=== PATIENT | female | born 1985 | race Caucasian/White ===

== ENCOUNTER 2021-07-31 13:55 | Outpatient (CLI) | payer OTHER, SELFPAY ==
--- NOTE | ~2021-07-31 | MR_ITS ---
EXAMINATION: MR knee RT wo con DATE: 07/31/2021 15:44 INDICATION: Right knee pain and effusion TECHNIQUE: Magnetic resonance imaging (MRI) of the right knee was performed without intravenous contr ast. Sequences included coronal PD-weighted FSE, coronal PD-weighted FS FSE, sagittal T2-weighted FS E, sagittal PD-weighted FS FSE and axial PD weighted fat saturated FSE. COMPARISON: None. FINDINGS: Medial compartment: Medial meniscus is normal. [place] deep chondral defect along the anterior weightbearing medial femora l condyle measuring 13 mm AP and 4 mm medial to lateral and without degenerative subchondral changes. There appears be a minimal amount of delamination at or near the bone chondral interface extending 1 -2 mm posteriorly from the posterior margin of the defect. Remaining cartilage in the medial compartm ent is normal. Lateral compartment: Lateral meniscus is normal. Similar deep chondral defect measuring 8 mm AP and 6 mm medial to lateral at the anterior weightbearing lateral femoral condyle without degenerative subchondral changes. Mild chondral surface regularity and shallow fissuring along the central aspect of the lateral tibial ethan teau extending onto the shoulder the intercondylar eminence. Patellofemoral compartment: Partial-thickness cartilage loss at the lateral patellar facet. There is tiny focus of subarticular e humza at the lateral facet underlying a horizontal chondral fissure extending across the mid to cephal ad aspect of the lateral facet to the apical ridge. Partial-thickness chondral ulceration along the l ateral margin of the lateral trochlea with tiny focus of underlying subarticular edema. Ligaments and tendons: Anterior and posterior cruciate ligaments are normal. The medial collateral ligament and fibular linda ateral ligament complex are normal. The extensor mechanism is normal. The visualized medial and later al hamstring tendons as well as the iliotibial band are normal. Fluid: Physiologic amount of fluid in the joint space. No loose osteochondral bodies identified. Osseous/other: There is red marrow reexpansion in the distal metadiaphyseal region of the femur. Couple small low si gnal intensity bone islands at the lateral femoral condyle. No fracture or pathologic marrow replacin g process. IMPRESSION: 1. 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 Reviewed, dictated and finalized at location A. IMPRESSION: 1. Mild tricompartmental osteoarthritis with deep chondral defects along the an terior weightbearing medial and lateral femoral condyles and with small regions of moderate to high-grade chondromalacia the lateral patellar facet and trochl ea.
--- NOTE | ~2021-07-31 | MR_ITS ---
EXAMINATION: MR foot LT wo con DATE: 07/31/2021 15:43 INDICATION: Left foot pain with avulsion fracture at the dorsum of the foot. TECHNIQUE: Magnetic resonance imaging (MRI) of the left foot excluding the toes was performed without intravenous contrast. Sequences included sagittal T1-weighted FSE, sagittal fluid sensitive FSE STIR , coronal PD-weighted FS FSE, coronal T1-weighted FSE, axial PD-weighted FS FSE, and axial PD-weighte d FSE. COMPARISON: None FINDINGS: Bone alignment is normal. No acute fracture. There is moderate osteoarthritis at the talonavicular kenton int with subarticular cystic changes and some cortical irregularity along the dorsolateral aspect of the proximal articular surface of the navicula. There is a small ossicle at the dorsal aspect of the joint space with low signal intensity corticated margins and without marrow edema to suggest acute fr acture which could represent either a developmental accessory os supra naviculare, heterotopic ossifi cation related to chronic tear of the dorsal talonavicular ligament or chronic nonunited avulsion fra cture fragment. There is additional moderate osteoarthritis at the anterior facet of the subtalar sherrill nt with marginal osteophytes and subarticular edema along the talar side of the articulation. Mild os teoarthritis at the calcaneocuboid and tarsal metatarsal joints. The Lisfranc ligament complex is nor mal. Thickening and increased signal along the tibial spring component of the anterior superficial de ltoid ligament consistent with chronic sprain. Visualized portions of the more posterior superficial deltoid ligament, the deep deltoid ligament and the spring ligament complex including the superomedia l component all remain normal. Large ganglion cyst posterior to the ankle extending 2.9 cm cephalad f rom the posterior margin of the subtalar joint and measuring approximately 12 mm maximal transaxial d imensions. Additional 14 x 10 x 5 mm multilobulated ganglion cyst arising from the dorsal aspect of t he talonavicular joint. IMPRESSION: 1. Moderate osteoarthritis at the talonavicular and anterior facet of the subtalar joints. 2. Age-indeterminate but more likely chronic moderate grade sprain of the anterior superficial deltoi d ligament. 3. Chronic appearing ossicle at the dorsal aspect of the talonavicular joint which could represent ei ther a developmental accessory os supra naviculare, heterotopic ossification related to chronic tear of the dorsal talonavicular ligament or chronic nonunited avulsion fracture fragment. Reviewed, dictated and finalized at location A. IMPRESSION: 1. Moderate osteoarthritis at the talonavicular and anterior facet of the subta lar joints. 2. Age-indeterminate but more likely chronic moderate grade sprain of the anter ior superficial deltoid ligament. 3. Chronic appearing ossicle at the dorsal aspect of the talonavicular joint wh ich could represent either a developmental accessory os supra naviculare, heter otopic ossification related to chronic tear of the dorsal talonavicular ligamen t or chronic nonunited avulsion fracture fragment.
== END 2021-07-31 13:56 | disposition home or self-care (01) ==
PROVIDERS: PCP Emergency Medicine; Visit Provider Emergency Medicine
DX: S99.922A Unspecified injury of left foot, initial encounter (principal); M19.072 Primary osteoarthritis, left ankle and foot; S93.692A Other sprain of left foot, initial encounter; M17.11 Unilateral primary osteoarthritis, right knee
CPT/HCPCS: 73718; 73721

== ENCOUNTER 2025-07-19 14:36 | Outpatient (CLI) | payer OTHER, SELFPAY ==
--- NOTE | 2025-07-19 14:48 | ECG_ITS ---
Test Date: 2025-07-19 15:05:26 Measurements Intervals [place] Rate: 69 P: 65 VT: 163 QRS: 50 QRSD: 98 T: 48 QT: 391 QTc: 420 Interpretive Statements SINUS RHYTHM INCOMPLETE RIGHT BUNDLE BRANCH BLOCK BORDERLINE ECG No previous ECG available for comparison Electronically Signed On 07-19-2025 15:10:51 CDT by Herve Brown D.O.
[2025-07-19 14:53] LABS: Hematocrit 41.7 % (37.0-47.0); Hemoglobin 13.5 g/dL (12.0-15.0); Immature Granulocyte Percent A 0.3 % (0-0.5); Lymphocytes Absolute Auto 2.00 K/mm3 (0.9-3.2); Mean Corpuscular HGB Conc 32.4 g/dl (32-36); Mean Corpuscular Hemoglobin 28.5 pg (26-34); Mean Corpuscular Volume 88.0 fl (80-100); Nucleated Red Blood Cells Absolute Auto 0.000 K/mm3 (0.0-0.012); Nucleated Red Blood Cells Perc 0.0 % (0.0-0.2); Platelet Count Result 250 k/mm3 (150-375); Red Blood Count 4.74 M/mm3 (4.2-5.4); White Blood Count 11.4 K/mm3 (4.5-10.0)
[2025-07-19 15:06] LABS: Alanine Aminotransferase 21 U/L (6-35); Albumin Level 4.7 g/dL (3.5-5.1); Alkaline Phosphatase 59 U/L (38-126); Anion Gap 7 mmol/L (4-12); Aspartate Amino Transferase 26 U/L (14-36); Bilirubin,Total 0.4 mg/dL (0.2-1.3); Blood Urea Nitrogen 13 mg/dL (7-17); Calcium 9.9 mg/dL (8.4-10.2); Carbon Dioxide 27 mmol/L (22-30); Chloride 103 mmol/L (98-107); Estimated Glomerular Filt Rate > 60; Glucose 99 mg/dL (65-110); Potassium 4.1 mmol/L (3.4-5.0); Sodium 137 mmol/L (137-145); Total Protein 7.9 g/dL (6.3-8.2)
[2025-07-19 15:38] LABS: Thyroid Stimulating Hormone Reflex 1.250 uIU/mL (0.465-4.68)
== END 2025-07-19 14:37 | disposition home or self-care (01) ==
LOC: ANHLAB 14:38
PROVIDERS: PCP Emergency Medicine; Visit Provider Obstetrics & Gynecology
DX: R00.2 Palpitations (principal); I45.10 Unspecified right bundle-branch block
CPT/HCPCS: 36415; 80053; 84443; 85025; 93005